=== PATIENT | female | born 1965 | race Caucasian/White ===

== ENCOUNTER 2020-02-26 10:41 | Inpatient (IN) ==
[2020-02-26] MEDS ORDERED: CeFAZolin Syr 2,000MG/20 ML 2,000 MG/20 ML SYRINGE IVPB ONE (11:02)
[2020-02-26] MEDS ORDERED: Lidocaine -MPF 2% 2 ML VIAL ONE ×4 (11:23→15:02)
[2020-02-26] MEDS ORDERED: *HR* Propofol 200 MG/20 ML VIAL IVP ONE ×2 (11:24→13:15)
[2020-02-26] MEDS ORDERED: Albuterol 2.5 MG/3 ML NEBULIZER IH ONE (11:28)
[2020-02-26] MEDS ORDERED: Ketorolac 30 MG/ML VIAL IVP ONE (11:28)
[2020-02-26] MEDS ORDERED: *HR* OxyCODONE Immed Rel 5 MG TABLET PO PRN (11:37)
[2020-02-26] MEDS ORDERED: Ondansetron 4 MG/2 ML VIAL IVP PRN (11:37)
[2020-02-26] MEDS ORDERED: Famotidine 20 MG/2 ML VIAL IVP ONE (11:37)
[2020-02-26] MEDS ORDERED: Acetaminophen IV 1,000 MG/100 ML INFUS..BTL IVPB ONE (11:37)
[2020-02-26] MEDS ORDERED: Albuterol 2.5 MG/3 ML NEBULIZER IH PRN (11:37)
[2020-02-26] MEDS ORDERED: *HR* Promethazine 25 MG/ML VIAL IVP PRN (11:37)
[2020-02-26] MEDS ORDERED: Albuterol 2.5 MG/3 ML NEBULIZER ONE (11:53)
[2020-02-26] MEDS: Ringers Solution, Lactated 1,000 ML IVC SCH ×2 (12:06→21:27)
[2020-02-26] MEDS ORDERED: *HR* Midazolam HCl 2 MG/2 ML VIAL ONE (13:05)
[2020-02-26] MEDS ORDERED: *HR* FentaNYL (PF) 100 MCG/2 ML VIAL ONE ×2 (13:05→15:22)
[2020-02-26] MEDS ORDERED: D5% in 0.45% NACL 1,000 ML IVC SCH (14:15)
[2020-02-26] MEDS ORDERED: Dexamethasone 4 MG/ML VIAL ONE (14:51)
[2020-02-26] MEDS ORDERED: Ondansetron 4 MG/2 ML VIAL ONE (14:51)
[2020-02-26] MEDS ORDERED: Lidocaine HCL 4 ML Topical Solution (Laryng-O-Jet Kit Sterile Pak) TP ONE (14:51)
[2020-02-26] MEDS ORDERED: *HR* HYDROMORPHONE 2 MG/ML VIAL ONE (14:52)
[2020-02-26] MEDS ORDERED: *HR* Succinylcholine 200 MG/10 ML VIAL IVP ONE (15:50)
[2020-02-26] MEDS ORDERED: CeFAZolin 2 GM/120 ML BAG IVPB SCH (16:00)
[2020-02-26] MEDS: *HR* HYDROmorphone PF 0.5 MG/0.5 ML SYRINGE IVP PRN ×2 (16:35→16:55)
[2020-02-26] MEDS: *HR* OxyCODONE Immed Rel 5 MG TABLET PO PRN (20:36)
[2020-02-26] MEDS: CeFAZolin 2 GM/120 ML BAG IVPB SCH (23:55)
[2020-02-27] MEDS: *HR* OxyCODONE Immed Rel 5 MG TABLET PO PRN ×4 (01:45→14:51)
[2020-02-27 06:41] VITALS: BP 133/68
[2020-02-27 07:06] LABS: Basophils % 0.1 %; Hematocrit 32.8 % (35.3-44.9); Immature Granulocytes % 0.4 % (0-4); Lymphocytes # 0.8 K/mcL (0.6-4.6); Lymphocytes % 9.3 %; Mean Corpuscular HGB Conc 33.2 g/dL (31.6-35.5); Mean Corpuscular Hemoglobin 32.6 pg (28.0-33.3); Mean Corpuscular Volume 98.2 fL (83.0-100.0); Monocytes # 0.8 K/mcL (0.0-1.3); Neutrophils # 7.2 K/mcL (1.6-8.9); Platelet Count 197 K/mcL (140-400); Red Blood Count 3.34 M/mcL (3.82-4.97); Red Cell Distribution Width 12.4 % (11.5-14.5); Segmented Neutrophils % 81.2 %; White Blood Count 8.9 K/mcL (4.3-11.1)
[2020-02-27 07:07] LABS: Hemoglobin 10.9 g/dL (11.5-15.4)
[2020-02-27] MEDS: CeFAZolin 2 GM/120 ML BAG IVPB SCH (07:50)
== END 2020-02-27 15:08 | disposition home or self-care (01) | DRG 482 ==
LOC: SAMDAY 10:41 → 3NENU 17:35
PROVIDERS: ADMIT Orthopaedic Surgery; ATTEND Orthopaedic Surgery